=== PATIENT | male | born 1960 | race Caucasian/White ===

== ENCOUNTER → 2023-08-31 11:50 | Outpatient (REF) | payer BC, SELFPAY | LOC: RCS 11:50 | PROVIDERS: ATTENDING PHYSICIAN Nurse Practitioner Adult Health; FAMILY PHYSICIAN Internal Medicine | DX: R07.89 Other chest pain (principal); Z82.49 Family history of ischemic heart disease and other diseases of the circulatory system | CPT/HCPCS: 93017 ==